=== PATIENT | male | born 1980 | race Caucasian/White ===

== ENCOUNTER → 2020-04-02 | Outpatient (CLI) | payer OTHER ==
--- NOTE | 2020-04-02 17:16 | MR ---
EXAMINATION TYPE: MR brain wo/w con DATE OF EXAM: 04/02/2020 COMPARISON: None HISTORY: G47.429 Narcolepsy; R42 Dizziness TECHNIQUE: Multiplanar, multisequence images of the brain and brainstem is performed without and with IV contras t, utilizing 14.5 mL intravenous Gadavist . FINDINGS: Diffusion weighted images demonstrate no evidence of a recent infarct or other diffusion ab normality. There is no extra-axial fluid collection or significant white matter signal abnormality. The ventricular system and cisternal spaces are normal in size and appearance. The brain volume is age appropriate. Midline structures demonstrate normal morphology. The craniocervical junction appears within normal limits. Post contrast images demonstrate no abnormal enhancement. The dural venous sinuses appear pa tent. The visualized sinuses are clear and the globes are intact. IMPRESSION: Normal pre and post contrast brain MRI
== END | disposition home or self-care (01) ==
LOC: RADMRIMAIN 15:04
PROVIDERS: ATTEND Family Medicine
DX: G47.429 Narcolepsy in conditions classified elsewhere without cataplexy (principal); R42 Dizziness and giddiness
CPT/HCPCS: 70553; A9585